=== PATIENT | male | born 1975 | race Caucasian/White ===

== ENCOUNTER 2019-02-18 08:33 | Outpatient (CLI) | payer OTHER, SELFPAY ==
[2019-02-18 09:45] LABS: Anion Gap 8.9 mmol/L (3-11); BUN 18 mg/dL (7-18); CO2 28.1 mmol/L (21.0-32.0); CREATININE 1.04 mg/dL (0.70-1.30); Calcium 8.7 mg/dL (8.5-10.1); Chloride 104 mmol/L (98-107); Cholesterol 247 mg/dL (50-200); Glucose 116 mg/dL (70-100); HDL Cholesterol 43 mg/dL (40-60); LDL CHOLESTEROL 163 mg/dL (<100); Potassium 4.7 mmol/L (3.5-5.1); Sodium 141 mmol/L (136-145); Triglyceride 206 mg/dL (30-150)
== END 2019-02-18 08:53 ==
PROVIDERS: PCP Nurse Practitioner Family; Visit Provider Nurse Practitioner Family
DX: E78.5 Hyperlipidemia, unspecified (principal); I10 Essential (primary) hypertension
CPT/HCPCS: 36415; 80048; 80061; 83721

== ENCOUNTER 2019-02-28 10:25 | Outpatient (CLI) | payer OTHER, SELFPAY ==
[2019-02-28 10:45] LABS: HCT 44.5 % (40.0-50.0); HGB 15.3 g/dL (13.5-17.5); Mean Corp. HGB Concentration 34.4 g/dL (32.0-36.0); Mean Corpuscular Volume 90.3 fL (80-95); Mean Platelet Volume 9.9 fL (8.0-11.0); Platelet Count 184 x1000/uL (130-400); RBC 4.93 m/cumm (4.50-6.00); RBC Distribution Width 12.6 % (11.8-14.1); White Blood Cell Count 6.52 k/cumm (4.4-10.8)
[2019-02-28 11:46] LABS: TSH (W/Ref FT4) 1.14 uIU/mL (0.358-3.74)
== END 2019-02-28 10:45 ==
PROVIDERS: PCP Nurse Practitioner Family; Visit Provider Nurse Practitioner Family
DX: I10 Essential (primary) hypertension (principal)
CPT/HCPCS: 36415; 85027; 81003; 82043; 82570; 84443; 87086

== ENCOUNTER 2019-02-28 11:38 | Outpatient (REF) | payer OTHER, SELFPAY ==
[2019-02-28 13:57] LABS: Bilirubin Negative (Negative); Blood Large (Negative); Clarity Clear; Glucose Negative (Negative); Ketones Negative (Negative); Leukocyte Esterase Negative (Negative); Nitrite Negative (Negative); Urobilinogen 0.2 EU/dL (Up TO 0.2)
[2019-02-28 14:10] LABS: Epithelial Cells Rare HPF (Negative); RBC 20-50 (0-2)
[2019-02-28 14:11] LABS: Bacteria Few HPF (Negative); C & S Indicated? C&S Done As Ordered; Casts Negative LPF (Negative); Crystals Negative HPF (Negative); Mucus Negative (Negative)
[2019-02-28 14:26] LABS: COMMENT (LAB VIEW ONLY) 193.94 mg/dL
== END 2019-02-28 11:58 ==
LOC: LBN 11:38
PROVIDERS: PCP Nurse Practitioner Family; Visit Provider Nurse Practitioner Family
DX: I10 Essential (primary) hypertension (principal); R31.29 Other microscopic hematuria; R80.9 Proteinuria, unspecified
CPT/HCPCS: 81003; 81015; 82043; 82570; 87086

== ENCOUNTER 2019-08-15 16:34 | Outpatient (REF) | payer OTHER, SELFPAY ==
[2019-08-15 18:44] LABS: Bilirubin Negative (Negative); Blood Large (Negative); Clarity Clear (Clear); Glucose Negative (Negative); Ketones Negative (Negative); Leukocyte Esterase Negative (Negative); Nitrite Negative (Negative); Urobilinogen 0.2 EU/dL (Up TO 0.2); pH 7.5 (5-8)
[2019-08-15 19:19] LABS: Bacteria Rare HPF (Negative); C & S Indicated? C&S Done As Ordered; Casts Negative LPF (Negative); Crystals Negative HPF (Negative); Epithelial Cells Rare HPF (Negative); Mucus Negative (Negative); Other Cells Negative (Negative); RBC >50 (0-2); WBC Negative HPF (0-5)
[2019-08-15 19:53] LABS: COMMENT (LAB VIEW ONLY) 140.93 mg/dL
[2019-08-15 20:19] LABS: Microalb ug/mg Crea 264.5 ug/mg Cr
== END 2019-08-15 16:54 ==
LOC: LBO 16:34
PROVIDERS: PCP Nurse Practitioner Family; Visit Provider Nurse Practitioner Family
DX: R31.29 Other microscopic hematuria (principal); R80.9 Proteinuria, unspecified
CPT/HCPCS: 80048; 81003; 81015; 82043; 82570; 87086

== ENCOUNTER 2019-08-16 09:12 | Outpatient (CLI) | payer OTHER, SELFPAY ==
[2019-08-16 12:58] LABS: BUN 18 mg/dL (7-18); CREATININE 1.23 mg/dL (0.70-1.30); Calcium 9.3 mg/dL (8.5-10.1); Chloride 104 mmol/L (98-107); Glucose 147 mg/dL (70-100); Potassium 4.6 mmol/L (3.5-5.1); Sodium 142 mmol/L (136-145)
== END 2019-08-16 09:32 ==
PROVIDERS: PCP Nurse Practitioner Family; Visit Provider Nurse Practitioner Family
DX: I10 Essential (primary) hypertension (principal); R31.29 Other microscopic hematuria; R80.9 Proteinuria, unspecified
CPT/HCPCS: 36415; 80048; 87086

== ENCOUNTER 2019-08-27 00:48 | Outpatient (CLI) | payer OTHER, SELFPAY ==
--- NOTE | 2019-08-27 09:41 | DI.CT_ITS ---
EXAM: CT ABDOMEN PELVIS WO/W CLINICAL HISTORY: MICROHEMATURIA WORKUP, R31.29, MICROSCOPIC HEMATURIA TECHNIQUE: Imaging Protocol: Axial computed tomography images with coronal and sagittal reformatted images were created and reviewed CONTRAST MATERIAL: Intravenous: Omnipaque 350 Contrast volume:100 mL contrast route:IV - Oral:No COMPARISON: No exams were available for comparison FINDINGS: The noncontrast examination shows no evidence of nephrolithiasis, ureterolithiasis, or bladder stone. Postcontrast CT scan of the abdomen and pelvis was obtained during the venous phase. The visualized lung bases are clear. The liver is unremarkable. No suspicious hepatic mass is seen. The portal, s uperior mesenteric, and portal veins are patent. The gallbladder is unremarkable. There is no bilia ry ductal dilatation. The pancreas, spleen, and adrenal glands are unremarkable. The kidneys show n ormal and symmetric enhancement. There is a 0.7 cm cyst in the inferior pole of the left kidney. No solid renal mass is identified. The urinary bladder is intact. There does appear to be mild increa sed attenuation surrounding the urinary bladder. An infection or inflammatory cystitis cannot be exc luded. The reproductive organs are unremarkable. The abdominal aorta is of normal caliber. No aneu rysmal dilatation is present. No significant abdominal or pelvic adenopathy, ascites, or pneumoperit oneum is present. There is diverticulosis seen in the sigmoid colon but no evidence of acute diverti culitis is present. There is a normal appendix present. No acute osseous abnormality is identified. The delayed images through the renal collecting system was not performed. The patient may return for completion of the examination at their convenience and at no additional charge. IMPRESSION: 1. No evidence of nephrolithiasis or obstructive uropathy. 2. No evidence of a renal mass. 3. 0.7 cm simple cyst in the inferior pole of the left kidney. 4. Question of inflammatory changes around the urinary bladder. Cystitis cannot be excluded. Please c orrelate clinically. 5. CT urogram was not performed at this time. The patient may return for completion of the examinatio n at their convenience and at no additional charge. DATA REPOSITORY: All CT scans at this facility are submitted to the National Radiology Data Registry (NRDR) Dose Index Registry (DIR) with the [employer] (ACR). RADIATION OPTIMIZATION: All CT scans at this facility use at least one of these dose optimization te chniques: automated exposure control; mA and/or kV adjustment per patient size (includes targeted exa ms where dose is matched to clinical indication); or iterative reconstruction.
[2019-08-27] MEDS: Omnipaque 350 MG/ML 100 ML BTL IJ (10:12)
== END 2019-08-27 01:08 ==
PROVIDERS: PCP Nurse Practitioner Family; Visit Provider Nurse Practitioner Family
DX: R31.29 Other microscopic hematuria (principal); N28.1 Cyst of kidney, acquired
CPT/HCPCS: 74178; J3490

== ENCOUNTER 2019-09-05 01:02 | Outpatient (CLI) | payer OTHER, SELFPAY ==
--- NOTE | 2019-09-05 09:20 | DI.CT_ITS ---
EXAM: CT ABDOMEN PELVIS W CLINICAL HISTORY: TO COMPLETE DELAYED IMAGES THROUGH RENAL COLLECTING SYSTEM. TECHNIQUE: COMPARISON: CT ABDOMEN PELVIS WO/W from 08/27/2019 FINDINGS: Additional delayed post contrast imaging was obtained to complement recent arterial venous phase CT. Delayed phase CT of pelvis shows unremarkable appearance of collecting systems ureters bilaterally. Urinary bladder appears thick wall and in particular there is wall irregularity of the bladder floor . In the setting of known hematuria additional evaluation with cystoscopy is recommended to evaluate the bladder and rule out bladder wall neoplasm. IMPRESSION:
[2019-09-05] MEDS: Omnipaque 350 MG/ML 100 ML BTL IJ (09:53)
== END 2019-09-05 01:22 ==
PROVIDERS: PCP Nurse Practitioner Family; Visit Provider Nurse Practitioner Family
DX: N32.89 Other specified disorders of bladder (principal); R31.9 Hematuria, unspecified
CPT/HCPCS: 74177; J3490

== ENCOUNTER 2019-10-09 12:55 | Outpatient (REF) | payer OTHER, SELFPAY ==
[2019-10-09 15:28] LABS: TOTAL PROTEIN,URINE TIMED 1193.5 mg/24hr (0.0-149.1); Total Volume 1550 ml
== END 2019-10-09 13:15 ==
LOC: NCHCN 12:55
PROVIDERS: PCP Family Medicine; Visit Provider Family Medicine
DX: R31.9 Hematuria, unspecified (principal)
CPT/HCPCS: 81050; 84155

== ENCOUNTER 2019-10-10 14:41 | Outpatient (REF) | payer OTHER, SELFPAY ==
--- NOTE | 2019-10-10 14:20 | PAPNONF_PTH ---
PATIENT: Hieu Dobbs LOC: [facility] U#:[id number] AGE/SX: 44/M ROOM: RE10/10/[address]: Alessia Salazar V : 1975 BED: DIS: 10/10/2019 SPEC #: [id number] RECD: 10/10/19 17:00 STATUS: MELISSA REFlorencio #: [id number] BARTOLOME: 10/10/19 14:[address]: Alessia Salazar V DEPT: [facility] Cytology RECD BY: Jailyn John Tissues: 1 - BODY FLUID CYTO(SPUTUM/URINE)UV Procedures: BODY FLUID CYTO(URINE/SPUTUM) Comments: [id number] (TOTAL VOLUME = 80 ml's) (40 ml'S URINE & 40 ml's CYTOLYT ADDED IN 2 CONTAINERS)
== END 2019-10-10 15:01 ==
LOC: NCHCN 14:41
PROVIDERS: PCP Family Medicine; Visit Provider Family Medicine
DX: R31.9 Hematuria, unspecified (principal); R82.89 Other abnormal findings on cytological and histological examination of urine
CPT/HCPCS: 88104

== ENCOUNTER 2020-02-19 09:30 | Outpatient (REF) | payer OTHER, SELFPAY ==
[2020-02-19 19:15] LABS: Anion Gap 7.3 mmol/L (3-11); BUN 17 mg/dL (7-18); CO2 29.7 mmol/L (21.0-32.0); CREATININE 1.03 mg/dL (0.70-1.30); Calcium 9.1 mg/dL (8.5-10.1); Chloride 104 mmol/L (98-107); Glucose 111 mg/dL (74-106); Potassium 4.5 mmol/L (3.5-5.1); Sodium 141 mmol/L (136-145)
== END 2020-02-19 09:50 ==
LOC: NCHCN 09:30
PROVIDERS: PCP Family Medicine; Visit Provider Family Medicine
DX: R80.9 Proteinuria, unspecified (principal); R31.9 Hematuria, unspecified
CPT/HCPCS: 80048

== ENCOUNTER 2020-04-09 16:22 | Outpatient (REF) | payer OTHER, SELFPAY ==
[2020-04-14 12:31] LABS: Fungus Smear No Fungi Seen
== END 2020-04-09 16:42 ==
LOC: NCHCN 16:22
PROVIDERS: PCP Family Medicine; Visit Provider Family Medicine
DX: H92.02 Otalgia, left ear (principal)
CPT/HCPCS: 87101; 87206

== ENCOUNTER 2020-04-14 13:57 | Outpatient (REF) | payer OTHER, SELFPAY | END 2020-04-14 14:17 | LOC: NCHCN 13:57 | PROVIDERS: PCP Family Medicine; Visit Provider Family Medicine | DX: H92.02 Otalgia, left ear (principal) | CPT/HCPCS: 87070; 87205 ==

== ENCOUNTER 2021-01-31 07:16 | Emergency (ER) | payer BC, SELFPAY ==
[2021-01-31 07:39] VITALS: BP 144/95; PULSE 91; RESP 16; TEMP 36.4; O2SAT 98
--- NOTE | 2021-01-31 08:00 | DI.RAD_ITS ---
EXAM: XR HAND LT COMPLETE CLINICAL HISTORY: ?foreign body. TECHNIQUE: 2D digital imaging was performed. COMPARISON: No exams were available for comparison FINDINGS: BONES: No acute fracture is present. No bony destructive lesion is seen. JOINTS: No dislocation present. SOFT TISSUE: Normal. No radiopaque foreign body is seen. The patient was unable to remove their ring . IMPRESSION: Unremarkable radiographs of the left hand. No radiopaque foreign body. DATA REPOSITORY: RADIATION DOSE DELIVERED:
--- NOTE | 2021-01-31 08:04 | ED.GENADUL_ITS ---
Discharge Plan Disposition Patient Disposition: HOME Condition: Stable Discharge Details Clinical Impression: Cellulitis of left hand Primary Care Provider: Alessia Salazar V ED Provider: Julito August Home Meds and New Rx's Prescriptions: New prednisone 20 mg tablet 60 mg PO DAILY 4 Days Qty: 12 RF: 0 amoxicillin-pot clavulanate [Augmentin] 875-125 mg tablet 1 tab PO BID Qty: 14 RF: 0 Continued sertraline 25 mg tablet 25 mg PO DAILY Qty: 90 RF: 3 lisinopril 10 mg tablet 10 mg PO DAILY Qty: 90 RF: 3 albuterol sulfate [ProAir HFA] 90 mcg/actuation HFA aerosol inhaler 1 - 2 inh Inhalation .Q4-6H PRN (Reason: shortness of breath or wheezing) Q ty: 3 RF: 3 Discharge Instructions Instructions: Cellulitis (ED) Additional Instructions: If you have redness spreading up the arm, severe worsening pain, feel more ill or fevers return to the emergency department Medical Decision Making 45 yo male states a rooster cut his left posterior hand with it's foot talons yesterday. He comes in for increased pain and redness to the posterior hand, no fevers. On exam he has several small <0.5 abrasions to the left posterior hand and on mid posterior hand has 2x3cm erythema and extends to the posterior ring finger about 1cm, no swelling or pain over flexor surfaces, full rom and no crepitus and normal sensation, no pain in the wrist. Suspect cellulitis, will start on augmentin and also obtain xray to evaluate for possible retained foreign body xray unremarkable, remains stable and feel he can be treated as an outpatient on oral antibiotics. He was given return precautions for returning to the ED and understood them. Differential Diagnosis Differential Diagnosis: cellulitis, foreign body Imaging Data Radiologic Study: Attestation: I personally reviewed and interpreted this imaging study as follows: Imaging: X-Ray Radiologist's impression: MPRESSION: There is no evidence of acute fracture.There is no evidence of malalignment or dislocation. HPI General Mode of arrival: ambulatory . Date/Time Provider Initiated Documentation: 01/31/21 07:30 . Limitations to Documentation: no limitations . Information obtained by: patient . History of Present Illness 45 year old M presents to the emergency department with the chief complaint of left hand redness, described as moderate, Patient reports no radiation. Patient started experiencing this day(s) (1) and it has been constant. No relieving factors improve symptom(s), No exacerbating factors reported . Patient did receive the following treatments prior to arrival, none Related Data Home Medications Medication Instructions Recorded Confirmed albuterol sulfate 90 mcg/actuation 1 - 2 inh INHALATION .Q4-6H PRN #3 02/21/19 01/31/21 aerosol inhaler unit lisinopril 10 mg tablet 10 mg PO DAILY #90 tab-cap 02/28/19 01/31/21 sertraline 25 mg tablet 25 mg PO DAILY #90 tab-cap 08/15/19 01/31/21 amoxicillin-pot clavulanate 1 tab PO BID #14 tab 01/31/21 [Augmentin] prednisone 60 mg PO DAILY 4 Days #12 tab 01/31/21 Previous Rx's Medication Instructions Recorded albuterol sulfate 90 mcg/actuation 1 - 2 inh INHALATION .Q4-6H PRN #3 02/21/19 aerosol inhaler unit lisinopril 10 mg tablet 10 mg PO DAILY #90 tab-cap 02/28/19 sertraline 25 mg tablet 25 mg PO DAILY #90 tab-cap 08/15/19 amoxicillin-pot clavulanate 1 tab PO BID #14 tab 01/31/21 [Augmentin] prednisone 60 mg PO DAILY 4 Days #12 tab 01/31/21 Allergies Allergy/AdvReac Type Severity Reaction Status Date / Time azithromycin [From Zithromax] AdvReac Nausea Unverified 01/31/21 07:43 General Stated Complaint: Cellulitis HALEY: 3 Review of Systems All systems reviewed & are unremarkable except as noted in HPI and below Constitutional Constitutional: Denies chills, Denies fever(s) and Denies weakness Cardiovascular Cardiovascular: Denies chest pain and Denies dyspnea Respiratory Respiratory: Denies cough and Denies dyspnea Gastrointestinal Gastrointestinal: Denies abdominal pain, Denies nausea and Denies vomiting Neurologic Neurologic: Denies weakness [facility] Medical History (Updated 01/31/21 @ 08:29 by Julito August MD) Eczema (05/02/14) Essential hypertension NAN (generalized anxiety disorder) Hyperlipidemia (05/02/14) 01/2019 labs: 10-year ASCVD risk = ~1.5% --> no statin indicated at this time IFG (impaired fasting glucose) Mild intermittent asthma without complication (11/30/16) Obstructive sleep apnea on CPAP (05/02/14) Tobacco use disorder (05/16/14) QUIT smoking; ongoing chewing tobacco Family History Mother Essential hypertension Father Essential hypertension Heart disease S/p pacemaker, CABG, AVR Myocardial infarction COPD (chronic obstructive pulmonary disease) Smoker Maternal Cousin Neoplasm Colon [place] Social History Smoking/Tobacco Use Status: Former Tobacco Use Smoking risk assessment performed?: Yes Alcohol Intake: current Alcohol Intake frequency: 0-2 drinks per day Alcohol type: wine Drug use: Never Substance use type: does not use Caregiver/Support person: No Household members: spouse Number of Children: 4 Communication Needs: None Education Level: college current occupation: [employer] Pets and animals: Yes Pets and animals: cat(s), dog(s) and other Details: Rats Current gender identity: male What type of physical activity do you participate in: walking Duration: 60-90 minutes/day Frequency: daily Seatbelt use: always Helmet use: Yes Drive intox or 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 Water heater temp set <120 deg: Yes Working smoke detector in home: Yes Fire extinguisher in home: Yes Carbon monox detector in home: Yes Firearms in home: Yes Firearms unloaded and locked: Yes Exam Const General: no acute distress Orientation: alert HENMT Head: normal to inspection Ears: external ears normal General nose exam: external nose normal Mouth: moist mucous membranes Eyes General: appearance normal, both eyes and all related structures Neck Neck: normal visual inspection Resp Effort & Inspection: normal respiratory effort and able to speak in complete sentences Cardio Rate: regular rate Skin General skin exam: elasticity normal Neuro General: patient alert and patient oriented x3 Extrem General: full ROM and capillary refill normal Psych Mental Status: mental status grossly normal Course Vital Signs Vital signs: Vital Signs Temperature 36.4 C L 01/31/21 07:39 Pulse 91 H 01/31/21 07:39 Respiratory Rate 16 01/31/21 07:39 Blood Pressure 144/95 H 01/31/21 07:39 Pulse Oximetry 98 01/31/21 07:39 Temperature 36.4 C L 01/31/21 07:39 Temperature Source Skin 01/31/21 07:39 Pulse 91 H 01/31/21 07:39 Respiratory Rate 16 01/31/21 07:39 Respiratory Effort Non-Labored 01/31/21 07:39 Blood Pressure 144/95 H 01/31/21 07:39 Blood Pressure Position Sitting 01/31/21 07:39 Pulse Oximetry 98 01/31/21 07:39 Oxygen Delivery Method Room Air 01/31/21 07:39 Oxygen Flow Rate 0 01/31/21 07:39 Pain Level 8 01/31/21 07:39
--- NOTE | 2021-01-31 08:24 | DI.VRAD_ITS ---
PROCEDURE INFORMATION: Exam: XR Left Hand Exam date and time: 01/31/2021 8:05 AM Age: 45 years old Clinical indication: Other: ? Foreign body TECHNIQUE: Imaging protocol: XR Left hand. Views: 3 or more views. COMPARISON: No relevant prior studies available. FINDINGS: Bones/joints: There is no evidence of acute fracture.There is no evidence of malalignment or dislocation. Other than the patient's ring on his ring finger there is no foreign body identified Soft tissues: Normal. IMPRESSION: There is no evidence of acute fracture.There is no evidence of malalignment or dislocation. Dictated and Authenticated by: Sandra Miguel MD. Ordering:ANITA Vila MD
[2021-01-31] MEDS: predniSONE 20 MG TAB 60 MG PO (08:35)
[2021-01-31] MEDS: Amoxicillin 875/Clav. 125 TAB PO (08:35)
== END 2021-01-31 08:42 | disposition home or self-care (01) ==
PROVIDERS: Emergency Provider Emergency Medicine; PCP Family Medicine
DX: S60.512A Abrasion of left hand, initial encounter (principal); L03.114 Cellulitis of left upper limb; X58.XXXA Exposure to other specified factors, initial encounter
CPT/HCPCS: 99284; 73130; 99283; J7512

== ENCOUNTER 2021-08-09 02:26 | Outpatient (CLI) | payer BC, SELFPAY ==
--- NOTE | 2021-08-09 | DI.RAD_ITS ---
Exam(s) XR SHOULDER LT COMPLETE 2+V EXAM: XR SHOULDER LT COMPLETE 2+V CLINICAL HISTORY: LT SHOULDER PAIN, M25.512, FALL 3 WKS AGO, ONGOING POINT TENDERNESS LATERAL. TECHNIQUE: 2D digital imaging was performed. COMPARISON: No exams were available for comparison FINDINGS: BONES: No acute fracture is present. No bony destructive lesion is seen. JOINTS: No dislocation present. Minimal spurring AC joint. SOFT TISSUE: Normal. IMPRESSION: Minimal degenerative changes AC joint. DATA REPOSITORY: RADIATION DOSE DELIVERED:
== END 2021-08-09 02:46 ==
PROVIDERS: PCP Family Medicine; Visit Provider Nurse Practitioner Family
DX: M25.512 Pain in left shoulder (principal); M19.012 Primary osteoarthritis, left shoulder
CPT/HCPCS: 73030

== ENCOUNTER 2021-12-16 16:47 | Outpatient (REF) | payer BC, SELFPAY ==
[2021-12-16 19:51] LABS: ALT 60 U/L (16-63); AST 27 U/L (15-37); Albumin 3.7 g/dL (3.4-5.0); Alkaline Phosphatase 53 U/L (46-116); BUN 14 mg/dL (7-18); Bilirubin, Total 0.8 mg/dL (0.2-1.0); Calculated LDL 154 mg/dL (<100); Chloride 103 mmol/L (98-107); Cholesterol 224 mg/dL (<200); Glucose 99 mg/dL (74-106); HDL Cholesterol 53 mg/dL (40-60); Potassium 4.4 mmol/L (3.5-5.1); Sodium 138 mmol/L (136-145); Total Protein 7.3 g/dL (6.4-8.2); Triglyceride 88 mg/dL (<150)
[2021-12-16 20:20] LABS: Hemoglobin A1C 5.6 % (<5.7)
== END 2021-12-16 16:48 | disposition home or self-care (01) ==
LOC: NCHCN 16:47
PROVIDERS: PCP Family Medicine; Visit Provider Family Medicine
DX: I10 Essential (primary) hypertension (principal); E78.5 Hyperlipidemia, unspecified; R73.03 Prediabetes; Z00.00 Encounter for general adult medical examination without abnormal findings
CPT/HCPCS: 80053; 80061; 83036

== ENCOUNTER 2022-06-14 15:19 | Outpatient (REF) | payer BC, SELFPAY ==
[2022-06-14 15:41] LABS: ESR 8 mm/hr (0-15)
[2022-06-14 16:11] LABS: Anion Gap 8.8 mmol/L (3-11); BUN 16 mg/dL (7-18); CO2 27.2 mmol/L (21.0-32.0); CREATININE 0.9 mg/dL (0.70-1.30); Calcium 9.1 mg/dL (8.5-10.1); Calculated LDL 140 mg/dL (<100); Chloride 102 mmol/L (98-107); Cholesterol 213 mg/dL (<200); Glucose 108 mg/dL (74-106); HDL Cholesterol 54 mg/dL (40-60); Potassium 4.2 mmol/L (3.5-5.1); Sodium 138 mmol/L (136-145); Triglyceride 95 mg/dL (<150)
[2022-06-14 16:21] LABS: C-Reactive Protein 0.18 mg/dL (0.0-0.3)
[2022-06-15 12:12] LABS: IgA 319 mg/dL (85-499); Interpretation (See Note); Tissue Transglutaminase IgA 1.2 U/mL (<4.0)
== END 2022-06-14 15:20 | disposition home or self-care (01) ==
LOC: NCHCN 15:19
PROVIDERS: PCP Family Medicine; Visit Provider Family Medicine
DX: R19.7 Diarrhea, unspecified (principal)
CPT/HCPCS: 80048; 80061; 82784; 83516; 85652; 86140

== ENCOUNTER 2023-03-31 07:28 | Emergency (ER) | payer BC, SELFPAY ==
[2023-03-31 07:30] VITALS: BP 141/88; PULSE 82; RESP 18; TEMP 36.5; O2SAT 95
[2023-03-31] MEDS: diazePAM 10 MG/2 ML SYR 5 MG IM (08:25)
[2023-03-31] MEDS: oxyCODONE 5 mg/Acetaminophen 325 mg TAB 1 TAB PO (08:27)
[2023-03-31 09:01] VITALS: BP 156/98; PULSE 86; RESP 16; O2SAT 97
[2023-03-31 09:02] VITALS: BP 156/98; PULSE 86; RESP 16; O2SAT 97
--- NOTE | 2023-03-31 09:08 | W.ED.GENAD ---
Discharge Plan Disposition Patient Disposition: Home Discharge Details Clinical Impression: Acute torticollis Primary Care Provider: Alessia Salazar V ED Provider: Jailyn Ramey Home Meds and New Rx's Prescriptions: New diazepam [Valium] 5 mg tablet 5 mg PO TID PRNQty: 7 0RF Continued sertraline 25 mg tablet 25 mg PO DAILY Qty: 90 3RF Patient Comments: does not take anymore lisinopril 10 mg tablet 10 mg PO DAILY Qty: 90 3RF albuterol sulfate [ProAir HFA] 90 mcg/actuation HFA aerosol inhaler 1 - 2 inh Inhalation .Q4-6H PRN (Reason: shortness of breath or wheezing) Qty: 3 3RF Rx Instructions: Dispense brand covered by insurance nicotine 14 mg/24 hr patch 24 hour Patient Comments: Apply 1 patch to skin every 24 hours naproxen 500 mg Tablet 500 mg PO BID PRN amoxicillin-pot clavulanate [Augmentin] 875-125 mg tablet 1 tab PO BID Qty: 14 0RF Patient Comments: rx finished Discharge Instructions Instructions: Spasmodic Torticollis (ED) Additional Instructions: Take Valium as needed for pain Ibuprofen 600 mg every 8 hours with food Tylenol 650 mg every 6 hours Light massage, warm and cool compresses better feels better 2 hours after application Return earlier should you have new or worsening complaints Referrals: Alessia Salazar MD [Primary Care Provider] - 1 day Medical Decision Making This 47-year-old male presents with neck pain which started after waking while sleeping askew on his pillow Suspect torticollis clinically, feeling symptomatically improved after IM Valium and a tablet of 5 mg oxycodone Neurovascularly intact, low suspicion for any neurological or vascular process clinically Encouraged to follow-up with primary care physician and an early return should he have new or worsening complaints Discharged home in stable condition, neurovascularly intact HPI General Date/Time Provider Initiated Documentation: 03/31/23 07:50. HPI Narrative: This 47-year-old gentleman presents with right sided neck pain. Patient states that he has never had anything similar to this in the past but slept unusually askew on his pillow. He was told that he might have torticollis. He did take ibuprofen at 530 this morning states has not helped his pain. He denies any headache, chest pain, or shortness of breath. He denies any strength or sensation changes to extremities. Related Data Home Medications Medication Instructions Recorded Confirmed albuterol sulfate 90 mcg/actuation 1 - 2 inh inhalation .Q4-6H PRN 02/21/19 03/31/23 aerosol inhaler (ProAir HFA) shortness of breath or wheezing #3 units lisinopril 10 mg tablet 10 mg PO DAILY #90 tab-caps 02/28/19 03/31/23 sertraline 25 mg tablet 25 mg PO DAILY #90 tab-caps 08/15/19 01/31/21 amoxicillin 875 mg-potassium 1 tab PO BID #14 tabs 01/31/21 clavulanate 125 mg tablet (Augmentin) diazepam 5 mg tablet (Valium) 5 mg PO TID PRN #7 tabs 03/31/23 naproxen 500 mg tablet 500 mg PO BID PRN 03/31/23 03/31/23 nicotine 14 mg/24 hr daily 03/31/23 03/31/23 transdermal patch Previous Rx's Medication Instructions Recorded albuterol sulfate 90 mcg/actuation 1 - 2 inh inhalation .Q4-6H PRN 02/21/19 aerosol inhaler (ProAir HFA) shortness of breath or wheezing #3 units lisinopril 10 mg tablet 10 mg PO DAILY #90 tab-caps 02/28/19 sertraline 25 mg tablet 25 mg PO DAILY #90 tab-caps 08/15/19 amoxicillin 875 mg-potassium 1 tab PO BID #14 tabs 01/31/21 clavulanate 125 mg tablet (Augmentin) diazepam 5 mg tablet (Valium) 5 mg PO TID PRN #7 tabs 03/31/23 Allergies Allergy/AdvReac Type Severity Reaction Status Date / Time azithromycin [From Zithromax] AdvReac Nausea Unverified 03/31/23 07:36 General Stated Complaint: Orthopedic HALEY: 4 PFSH All Active Problems (Updated 03/31/23 @ 09:13 by AIMEE Tierney) Cellulitis of left hand (Acute) Acute torticollis (Acute) Proteinuria (Acute) Microscopic hematuria (Acute) NAN (generalized anxiety disorder) (Chronic) Essential hypertension (Chronic) IFG (impaired fasting glucose) (Chronic) Hyperlipidemia (Chronic 05/02/14) 01/2019 labs: 10-year ASCVD risk = ~1.5% --> no statin indicated at this time Mild intermittent asthma without complication (Chronic 11/30/16) Obstructive sleep apnea on CPAP (Chronic 05/02/14) Tobacco use disorder (Chronic 05/16/14) QUIT smoking; ongoing chewing tobacco Medical History (Updated 03/31/23 @ 09:13 by AIMEE Tierney) Eczema (05/02/14) Family History Mother Essential hypertension Father Essential hypertension Heart disease S/p pacemaker, CABG, AVR Myocardial infarction COPD (chronic obstructive pulmonary disease) Smoker Maternal Cousin Neoplasm Colon [place] Social History Smoking/Tobacco Use Status: Former Tobacco Use Smoking risk assessment performed?: Yes Alcohol Intake: current Alcohol Intake frequency: 0-2 drinks per day Alcohol type: wine Drug use: Never Substance use type: does not use Details: nicotine patches used. 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 Water heater temp set <120 deg: Yes Working smoke detector in home: Yes Fire extinguisher in home: Yes Carbon monox detector in home: Yes Firearms in home: Yes Firearms unloaded and locked: Yes Do you feel safe at home: Yes Do you feel safe in your relationship?: Yes Exam Const Other: Patient is calm and cooperative Eyes Other: Pupils equal round reactive to light and accommodation Neck Other: Right lateral cervical tenderness, overlying the SCM muscle Resp Other: Lungs clear to auscultation Cardio Other: Cardiac rate rhythm regular cardiac rate rhythm regular, neurovascularly intact Neuro Other: Alert, oriented, neurovascularly intact distally Course Vital Signs Vital signs: Vital Signs Temperature 36.5 C 03/31/23 07:30 Pulse 82 03/31/23 07:30 Respiratory Rate 18 03/31/23 07:30 Blood Pressure 141/88 H 03/31/23 07:30 Pulse Oximetry 95 03/31/23 07:30 Temperature 36.5 C 03/31/23 07:30 Temperature Source Oral 03/31/23 07:30 Pulse 86 03/31/23 09:02 Respiratory Rate 16 03/31/23 09:02 Respiratory Effort Normal, Non-Labored 03/31/23 07:40 Blood Pressure 156/98 H 03/31/23 09:02 Pulse Oximetry 97 03/31/23 09:02 Oxygen Delivery Method Room Air 03/31/23 09:02 Oxygen Flow Rate 0 03/31/23 09:02 Pain Level 2 03/31/23 09:02 PAWSS Have you Been Recently Intoxicated or Drunk Within the Last 30 days?: Yes Have you Ever Experienced Previous Episodes of Alcohol Withdrawal?: No Have you ever Experienced Withdrawal Seizures?: No Have you ever Experienced Delirium Tremens(DT)s?: No Have you ever undergone Alcohol Rehabilitation Treatment (i.e, inpt ot outpatient treatment programs)?: No Have you ever Experienced Blackouts?: No Have you ever Combined Alcohol with other Downers within the last 90 days?: No Have you ever Combined Alcohol with any other Substance of Abuse during the last 90 days?: No Positive Blood Alcohol level on Presentation? [PCS.BAL]: No Evidence of Increased Autonomic Activity (i.e. HR>120, tremor, sweating, agitation, nausea)?: No Result: 1
== END 2023-03-31 18:08 | disposition home or self-care (01) ==
PROVIDERS: Emergency Provider Physician Assistant; PCP Family Medicine
DX: M43.6 Torticollis (principal)
CPT/HCPCS: 96372; 99284; J3360

== ENCOUNTER 2023-07-10 12:21 | Outpatient (REF) | payer BC, SELFPAY ==
[2023-07-10 18:32] LABS: Hemoglobin A1C 5.6 % (<5.7)
[2023-07-10 18:52] LABS: ALT 53 U/L (16-63); AST 31 U/L (15-37); Albumin 3.4 g/dL (3.4-5.0); Alkaline Phosphatase 63 U/L (46-116); Anion Gap 8.2 mmol/L (3-11); BUN 16 mg/dL (7-18); Bilirubin, Total 0.7 mg/dL (0.2-1.0); CO2 27.8 mmol/L (21.0-32.0); CREATININE 1.1 mg/dL (0.70-1.30); Calcium 9.3 mg/dL (8.5-10.1); Chloride 102 mmol/L (98-107); Estimated GFR 84.37 (mL/min/1.73m2); Glucose 149 mg/dL (74-106); Magnesium 1.7 mg/dL (1.8-2.4); Potassium 4.2 mmol/L (3.5-5.1); Sodium 138 mmol/L (136-145); Total Protein 7.2 g/dL (6.4-8.2); Vitamin B12 390 pg/mL (193-986)
== END 2023-07-10 12:22 | disposition home or self-care (01) ==
LOC: NCHCN 12:21
PROVIDERS: PCP Family Medicine; Visit Provider Family Medicine
DX: R73.03 Prediabetes (principal); G62.9 Polyneuropathy, unspecified
CPT/HCPCS: 80053; 82607; 83036; 83735

== ENCOUNTER → 2024-05-10 00:42 | Outpatient (CLI) | payer BC, SELFPAY ==
--- NOTE | 2024-05-10 13:31 | DI.RAD_ITS ---
Exam(s) XR FOOT LT COMPLETE EXAM: XR FOOT LT COMPLETE CLINICAL HISTORY: Left great toe pain,M79.675. TECHNIQUE: 2D digital imaging was performed. COMPARISON: CR XR FOOT RT COMPLETE from 05/10/2024 FINDINGS: 3 views No evidence of fracture or diastasis of the Lisfranc joint. Great toe metatarsophalangeal joint appe ars unremarkable as do the other articulations of the foot. There is no pes planus. There is a smal l enthesophyte at the posterior calcaneus Achilles insertion site, similar to the opposite side. The re is no inferior calcaneal spur nor plantar fascia calcification. Bone density is normal. There are no osseous lesions nor erosions. IMPRESSION: No significant radiograph findings in the foot. DATA REPOSITORY: RADIATION DOSE DELIVERED:
--- NOTE | 2024-05-10 13:31 | DI.RAD_ITS ---
Exam(s) XR FOOT RT COMPLETE EXAM: XR FOOT RT COMPLETE h CLINICAL HISTORY: Right toe pain,M79.674. TECHNIQUE: 2D digital imaging was performed. COMPARISON: No exams were available for comparison FINDINGS: 3 views No evidence of fracture or diastasis of the Lisfranc joint. Great toe MTP joint appears unremarkable as do the other articulations of the foot. Small enthesophytic is noted on the posterior calcaneus Achilles insertion site. Is no inferior calcaneal spur. No pes planus. No calcification in the any ntar fascia. Bone density normal. No osseous lesions. IMPRESSION: No significant radiographic findings in the foot. DATA REPOSITORY: RADIATION DOSE DELIVERED:
== END ==
LOC: DI 00:42
PROVIDERS: PCP Family Medicine; Visit Provider Podiatrist
DX: M79.675 Pain in left toe(s) (principal); M79.674 Pain in right toe(s)
CPT/HCPCS: 73630

== ENCOUNTER 2024-05-16 13:36 | Outpatient (REF) | payer BC, SELFPAY ==
[2024-05-16 15:15] LABS: TSH 1.24 uIU/Ml (0.36-3.74)
== END 2024-05-16 13:37 | disposition home or self-care (01) ==
LOC: NCHCN 13:36
PROVIDERS: PCP Family Medicine; Visit Provider Family Medicine
DX: I10 Essential (primary) hypertension (principal); G62.9 Polyneuropathy, unspecified; E78.5 Hyperlipidemia, unspecified
CPT/HCPCS: 84443

== ENCOUNTER 2024-05-29 02:28 | Outpatient (CLI) | payer BC, SELFPAY ==
[2024-05-29 12:43] LABS: HCT 56.1 % (40.0-50.0); HGB 18.7 g/dL (13.5-17.5); MCH 31.6 pg (27.0-33.0); MCHC 33.3 % (32.0-36.0); MCV 95 fL (80-95); MPV 10.5 fL (8.0-11.0); Platelet Count 171 10^3/uL (130-400); RBC 5.91 10^6/uL (4.36-5.78); RDW 12.7 % (11.8-14.1); RDW-SD 45.1 fL; WBC 5.64 10^3/uL (4.4-10.8)
[2024-05-29 13:20] LABS: Hemoglobin A1C 5.7 % (<5.7)
[2024-05-29 13:30] LABS: ALT 56 U/L (16-63); AST 25 U/L (15-37); Albumin 3.5 g/dL (3.4-5.0); Alkaline Phosphatase 64 U/L (46-116); Anion Gap 7.2 mmol/L (3-11); BUN 20 mg/dL (7-18); Bilirubin, Total 0.61 mg/dL (0.2-1.0); CO2 26.8 mmol/L (21.0-32.0); Calcium 9.2 mg/dL (8.5-10.1); Calculated LDL 141 mg/dL (<100); Chloride 107 mmol/L (98-107); Cholesterol 218 mg/dL (<200); Glucose 122 mg/dL (74-106); HDL Cholesterol 61 mg/dL (40-60); Potassium 4.9 mmol/L (3.5-5.1); Sodium 141 mmol/L (136-145); Total Protein 7.1 g/dL (6.4-8.2); Triglyceride 83 mg/dL (<150); Vitamin B12 245 pg/mL (193-986)
[2024-05-31 16:21] LABS: Albumin 60.4 % (55.8-66.1); Total Protein 6.6 g/dL (6.3-8.2)
== END 2024-05-29 02:29 | disposition home or self-care (01) ==
LOC: LOS 02:28
PROVIDERS: PCP Family Medicine; Visit Provider Family Medicine
DX: G62.9 Polyneuropathy, unspecified (principal); E78.5 Hyperlipidemia, unspecified; I10 Essential (primary) hypertension
CPT/HCPCS: 36415; 80053; 80061; 85027; 82607; 83036; 84165

== ENCOUNTER 2024-09-17 02:03 | Outpatient (CLI) | payer BC, SELFPAY ==
[2024-09-17 09:00] LABS: Abs Immature Grans 0.02 10^3/uL (0.0-0.06); Absolute Basophil Count 0.04 10^3/uL (0.0-0.2); Absolute Eosinophil Count 0.15 10^3/uL (0.0-0.7); Absolute Lymphocyte Count 1.92 10^3/uL (1.2-3.4); Absolute Monocyte Count 0.68 10^3/uL (0.1-0.8); Basophils % 0.8 %; Eosinophils % 2.9 %; HCT 54.2 % (40.0-50.0); HGB 18.5 g/dL (13.5-17.5); Immature Grans % 0.4 %; Lymphocytes % 36.9 %; MCH 31.8 pg (27.0-33.0); MCHC 34.1 % (32.0-36.0); MCV 93 fL (80-95); MPV 9.7 fL (8.0-11.0); Monocytes % 13.1 %; Neutrophils % 45.9 %; Platelet Count 159 10^3/uL (130-400); RBC 5.82 10^6/uL (4.36-5.78); RDW 12.6 % (11.8-14.1); RDW-SD 43.1 fL; WBC 5.21 10^3/uL (4.4-10.8)
[2024-09-17 09:41] LABS: Vitamin B12 492 pg/mL (193-986)
== END 2024-09-17 02:04 | disposition home or self-care (01) ==
LOC: LBO 02:03
PROVIDERS: PCP Family Medicine; Visit Provider Family Medicine
DX: E53.8 Deficiency of other specified B group vitamins (principal); D75.1 Secondary polycythemia
CPT/HCPCS: 36415; 82607; 85025

== ENCOUNTER 2024-10-04 15:08 | Outpatient (REF) | payer BC, SELFPAY ==
[2024-10-04 15:36] LABS: Bilirubin Negative (Negative); Blood Moderate (Negative); Clarity Clear (Clear); Glucose Negative (Negative); Ketones Negative (Negative); Leukocyte Esterase Negative (Negative); Nitrite Negative (Negative); Specific Gravity 1.025 (1.005-1.025); Urobilinogen 0.2 mg/dL (Up to 0.2); pH 5.5 (5-8)
[2024-10-04 16:06] LABS: Bacteria Negative HPF (Negative); Crystals Negative HPF (Negative); Epithelial Cells Few HPF (Negative); Mucus Negative (Negative); WBC Negative HPF (0-5)
[2024-10-04 16:07] LABS: C & S Indicated? No
[2024-10-04 17:05] LABS: Microalb ug/mg Crea 527.3 ug/mg Cr
== END 2024-10-04 15:09 | disposition home or self-care (01) ==
LOC: NCHCN 15:08
PROVIDERS: PCP Family Medicine; Visit Provider Family Medicine
DX: Z87.448 Personal history of other diseases of urinary system (principal); N32.89 Other specified disorders of bladder
CPT/HCPCS: 81003; 81015; 82043; 82570

== ENCOUNTER 2024-10-14 15:36 | Outpatient (REF) | payer BC, SELFPAY ==
[2024-10-14 13:45] LABS: Creatinine,Urine 86.86 mg/dL; PROTEIN 34.9 mg/dL (0.0-11.9)
[2024-10-14 13:52] LABS: Creatinine,24hr Ur 2.08 g/24hr (0.95-2.49); TOTAL PROTEIN,URINE TIMED 863.8 mg/24hr (0.0-149.1); Total Volume 2475 ml
== END 2024-10-14 15:37 | disposition home or self-care (01) ==
LOC: NCHCN 15:36
PROVIDERS: PCP Family Medicine; Visit Provider Family Medicine
DX: Z87.448 Personal history of other diseases of urinary system (principal)
CPT/HCPCS: 82570; 84155

== ENCOUNTER 2025-06-02 09:37 | Day surgery (SDC) | payer BC, SELFPAY ==
[2025-06-02 09:42] VITALS: BP 137/94; PULSE 75; RESP 18; TEMP 36.3; O2SAT 96
[2025-06-02] MEDS: Lactated Ringers 1,000 ML 80 ML IV (10:19)
--- NOTE | 2025-06-02 10:31 | W.ANESPRE ---
General Info Date of Service Date Performed: 06/02/25 Height: 6 ft Weight: 116.7 kg Body Mass Index (BMI): 34.9 Surgical Procedure: Operation Date: 06/02/25 10:05 Proposed Procedure Side Surgeon p Ailin Dia MD Meds Allergies and Home Medications Allergies Allergy/AdvReac Type Severity Reaction Status Date / Time azithromycin (From Zithromax) AdvReac Nausea Verified 05/29/25 08:42 Home Medication ?Medication ?Instructions ?Recorded albuterol sulfate 90 mcg/actuation 1 - 2 inh inhalation .Q4-6H PRN 02/21/19 aerosol inhaler (ProAir HFA) shortness of breath or wheezing #3 units ebn 6 PO DAILY 11/05/24 lisinopril 20 mg tablet 20 mg PO DAILY 04/18/25 magnesium citrate 125 mg capsule 125 mg PO DAILY 04/18/25 bisacodyl 5 mg tablet,delayed 5 mg PO ONCE #4 tabs 05/22/25 release (Dulcolax (bisacodyl)) polyethylene glycol 3350 17 17 g PO ONCE #238 grams 05/22/25 gram/dose oral powder Current Visit Medications: Current Medications Generic Name Dose Route Start Last Admin Trade Name Freq PRN Reason Stop Dose Admin Ringer's Solution 1,000 mls @ 80 mls/hr 06/02/25 06:00 06/02/25 10:19 IV 06/02/25 23:59 80 mls/hr INFUSION [facility] Administration IV Miscellaneous Supplies 1 each 06/02/25 06:00 Iv Access IV 06/02/25 23:59 DIRECTED [facility] Sodium Chloride 0 ml 06/02/25 06:00 Normal Saline Flush 10 Ml Syr IV 06/02/25 23:59 PRN PRN Sodium Chloride 0 ml 06/02/25 06:00 Normal Saline 10 Ml Vial IJ 06/02/25 23:59 DIRECTED PRN Sterile Water 0 ml 06/02/25 06:00 Water,Injection,Sterile 10 Ml Vial IJ 06/02/25 23:59 DIRECTED PRN PFSH Active Problems Active Problems: Problem Status Onset Code Pain in left foot Acute M79.672 Venous insufficiency Acute I87.2 Neuropathy Acute G62.9 Alcohol use Acute Z78.9 Right foot pain Acute M79.671 Hypertension Chronic I10 Cellulitis of left hand Acute L03.114 Proteinuria Acute R80.9 Microscopic hematuria Acute R31.29 NAN (generalized anxiety disorder) Chronic Essential hypertension Chronic I10 IFG (impaired fasting glucose) Chronic R73.01 Hyperlipidemia Chronic 05/02/14 E78.5 Mild intermittent asthma without complication Chronic 11/30/16 J45.20 Obstructive sleep apnea on CPAP Chronic 05/02/14 G47.33, Z99.89 Tobacco use disorder Chronic 05/16/14 F17.200 Medical History Medical History Uvulitis Otalgia, left ear Cobalamin deficiency Erythrocytosis Hemoglobinemia Eczema (05/02/14) Surgical History Surgical History History of vasectomy Tobacco Smoking/Tobacco Use Status: Former Tobacco Use Alcohol Alcohol Intake: current Alcohol intake frequency: 0-2 drinks per day Alcohol type: wine Substance Use Substance use: Never Substance use type: does not use Details: nicotine patches used. Vital Signs and Lab Results Vital Signs Most Recent Vital Signs in EMR: Most Recent Vital Signs Temp Pulse Resp BP Pulse Ox 36.3 C L 75 18 137/94 H 96 06/02/25 09:42 06/02/25 09:42 06/02/25 09:42 06/02/25 09:42 06/02/25 09:42 Imaging and Studies Imaging and Studies Study information below may be from another EMR and interpreted by another provider. Please see original notes in EMR for more complete details. Pulmonary Function Summary: 02/09/16: INTERPRETATION OF STUDY: The spirometry shows moderately severe obstructive airways disease with significant bronchodilator response. Lung volume shows no evidence of restriction. Diffusion capacity mildly elevated. Airway resistance elevated. Anesthesia Assessment and Plan Anesthesia History Personal History: No History of Anesthesia Complications Family History: No Family History of Anesthesia Complications Exercise Tolerance Exercise Tolerance: Metabolic Equivalents>4 Pertinent Negatives Pertinent Negatives: No Symptoms of GERD and No Major Cardiovascular Symptoms or Complaints Cardiac & Pulmonary Exam Cardiac Exam: Normal S1/S2 Heart Sounds Pulmonary Exam: Clear Bilateral Breath Sounds Implantable Cardiac Device Does patient have a Pacemaker or an ICD?: No Airway Exam Known Difficult Airway: No Mallampati Class: 2 Mouth Opening: Normal (> 3cm) Thyromental Distance: Greater than 3 cm Facial Hair: Full Connell Neck Range of Motion: Full ROM Neck Circumference: Thick Teeth Condition: Normal Dentition ASA Classification ASA Score: ASA 2 Emergency Case?: No NPO Status NPO Status: NPO Clears >2 hours, Solids >8 hours Anesthesia Plan Resuscitation Status: Full Code Anesthesia Technique: General Anesthesia Airway Planned: Natural Airway Monitors Used: Standard Monitors
[2025-06-02 10:33] VITALS: BMI 34.9
--- NOTE | 2025-06-02 11:53 | BOWEL_PTH ---
PATIENT: Hieu Dobbs LOC: [facility] U#:[id number] AGE/SX: 49/M ROOM: RE06/02/[address]: Jd Dia : 1975 BED: DIS: 06/02/2025 SPEC #: [id number] RECD: 06/02/25 12:33 STATUS: MELISSA RE #: [id number] BARTOLOME: 06/02/25 11:[address]: Jd Dia DEPT: Surgical Specimen RECD BY: Greta Hill ENTERED: 06/02/25 12:34 SP TYPE: Bowel OTHR DR: Alessia Salazar V Tissues: 1 - BIOPSY BOWEL 2 - BIOPSY BOWEL Procedures: GROSS AND MICRO LEVEL 4 Comments: [id number]
--- NOTE | 2025-06-02 12:00 | W.COLOREPORT ---
Date of service: 06/02/25 Time of Service: 12:00 Colonoscopy Report Procedure Description: PROCEDURES PERFORMED: 1. Colonoscopy with cold forceps polypectomy x2 PREOPERATIVE DIAGNOSIS: Screening colonoscopy POSTOPERATIVE DIAGNOSIS: Sigmoid diverticulosis, rectal polyps, grade 1 internal hemorrhoids SURGEON: Nioclasa Dia MD INDICATION FOR PROCEDURE: the patient is a 49-year-old man due for his for screening colonoscopy. No symptoms of concern. No family history of colon cancer FINDINGS: Normal terminal ileum. Polyps: 2 small polyps were removed from the rectum. They were flat, 2-3 mm in size. They were removed with cold forceps technique. There was mild?moderate diverticular disease in the sigmoid colon. There is no stricture or active inflammation. Grade 1 internal hemorrhoids are present in the rectum. SURVEILLANCE interval/FOLLOW-UP: Pending path results of the polyps. If hyperplastic 10 years, if adenomatous then 7 to 10 years. If villous or sessile serrated (not suspected) then in 3 years. SPECIMENS: Yes EBL: Minimal COMPLICATIONS: None QUALITY of prep: Excellent Procedure in detail: The patient gave written consent and was in agreement with the indications, the potential risks as well as the benefits of the procedure. They were taken to the endoscopy suite and laid in the left lateral decubitus position. A timeout was performed and anesthesia was administered which was tolerated well. I started the procedure. Digital rectal and visual examination was performed and grossly within normal limits. A well-lubricated flexible colonoscope was then introduced and passed without any notable difficulty all the way to the cecum identified by the ileocecal valve and the appendiceal orifice. The terminal ileum was briefly, superficially intubated and looked normal. The scope was then slowly withdrawn with the above-noted findings. The patient tolerated the procedure well and was taken to the PACU in hemodynamically stable condition.
--- NOTE | 2025-06-02 12:02 | W.PM.DSUDISC ---
Date of service: 06/02/25 Discharge Plan Disposition Patient Disposition: Home Condition: Good Discharge Details Attending Provider: Jd Dia Primary Care Provider: Alessia Salazar V Home Meds and New Rx's Prescriptions: No Action bisacodyl [Dulcolax (bisacodyl)] 5 mg tablet,delayed release (DR/EC) 5 mg PO ONCE Qty: 4 0RF Rx Instructions: Take per colonoscopy instructions provided by ordering providers office polyethylene glycol 3350 17 gram/dose powder 17 g PO ONCE Qty: 238 0RF Rx Instructions: Take per colonoscopy instructions provided by ordering providers office albuterol sulfate [ProAir HFA] 90 mcg/actuation HFA aerosol inhaler 1 - 2 inh Inhalation .Q4-6H PRN (Reason: shortness of breath or wheezing) Qty: 3 3RF Rx Instructions: Dispense brand covered by insurance ebn 6 PO DAILY lisinopril 20 mg tablet 20 mg PO DAILY magnesium citrate 125 mg capsule 125 mg PO DAILY Rx Instructions: can try two tabs daily if desired Discharge Instructions Additional Instructions: FINDINGS: Some small polyps were found and removed. Nothing to worry about. That is why we do these colonoscopies. Depending on what type of polyp they proved to be, you may need to do a colonoscopy sooner than 10 years. We will call you. There is otherwise some mild diverticular disease and also some mild hemorrhoid disease both of which are very common and benign and nothing you need to worry about. Stand Alone Forms: Anesthesia Discharge Inst., Colonoscopy Post Instructions, Isac Jean Baptiste (DSJosh) Activity:: Activity as Tolerated Diet:: As Tolerated
[2025-06-02 12:03] VITALS: BP 131/89; PULSE 82; RESP 16; TEMP 36; O2SAT 96
[2025-06-02 12:30] VITALS: BP 126/84; PULSE 76; RESP 16; TEMP 36.4; O2SAT 95
--- NOTE | 2025-06-02 12:40 | W.ANESPOSTOP ---
Postoperative Evaluation Date, Time and Location Date Performed: 06/02/25 Time Performed: 12:40 Patient Location: Day Surgery Unit Vital Signs Most Recent Imported Vital Signs: Most Recent Vital Signs Temp Pulse Resp BP Pulse Ox 36.0 C L 82 16 131/89 96 06/02/25 12:03 06/02/25 12:03 06/02/25 12:03 06/02/25 12:03 06/02/25 12:03 Pain Score Most Recent Pain Score: Most Recent Pain Score Pain Level 0 06/02/25 12:03 Assessment Mental Status: Awake (Alert & Oriented to Patient Baseline) Airway and Respiratory Function: Patent airway with normal (patient baseline) respiratory exam Cardiovascular Function: Hemodynamically Stable Hydration Status: Adequately Hydrated Nausea & Vomiting: No Nausea or Vomiting Pain: Pt. Denies Any Pain Peripheral Nerve Block: Patient did not receive a nerve block
== END 2025-06-02 12:38 | disposition home or self-care (01) ==
LOC: SUR 09:38
PROVIDERS: PCP Family Medicine; Visit Provider Student in an Organized Health Care Education/Training Program
PROC: 0DJD8ZZ Inspection of Lower Intestinal Tract, Via Natural or Artificial Opening Endoscopic (ICD-10-PCS; CPT 45378; principal; 2025-06-02 10:00)
DX: Z12.11 Encounter for screening for malignant neoplasm of colon (principal); K57.30 Diverticulosis of large intestine without perforation or abscess without bleeding; K63.5 Polyp of colon; K64.8 Other hemorrhoids
CPT/HCPCS: 45380; 88305; J2003; J2704